=== PATIENT | female | born 1995 | race Caucasian/White ===

== ENCOUNTER 2023-06-27 20:16 | Inpatient (IN) ==
[2023-06-27] MEDS: OXYTOCIN 30 UNITS/NSS 30 UNITS/500 ML BAG IV PRN (20:37)
[2023-06-27] MEDS ORDERED: LACTATED RINGER'S 1,000 ML IV PRN ×2 (20:59→21:19)
[2023-06-27] MEDS ORDERED: LIDOCAINE 1% LOCAL 20 ML VIAL INFIL PRN ×2 (20:59→21:19)
[2023-06-27] MEDS ORDERED: OXYTOCIN 30 UNITS/NSS 30 UNITS/500 ML BAG IV PRN ×2 (21:19→21:20)
[2023-06-27] MEDS ORDERED: DIPHTHER/TETAN/PERTUS Vaccine (Tdap, Adol/Adult) 0.5mL IM ONE (21:20)
[2023-06-27] MEDS ORDERED: HYDROCORTISONE ACETATE 25 MG SUPP PR PRN (21:20)
[2023-06-27] MEDS ORDERED: bisacodyL 10 MG SUPP PR PRN (21:20)
--- NOTE | 2023-06-27 21:21 | Delivery Summary ---
Vaginal Delivery Summary Date of Service June 27, 2023 Vaginal Delivery Summary and 2nd Degree LAC [facility] Vaginal Delivery Charge Delivery Type Details: and 2nd Degree LAC
[2023-06-27] MEDS: LIDOCAINE 1% LOCAL 20 ML VIAL ONE (21:26)
[2023-06-27 21:45] LABS: Hemoglobin 10.4 g/dl (12.0-16.0); Mean Corpuscular Hemoglobin 30.4 pg (25.0-34.0); Mean Corpuscular Hgb Conc 33.5 g/dL (32.0-36.0); Mean Corpuscular Volume 90.6 fL (80.0-100.0); Mean Platelet Volume 11.7 fL (9.4-12.4); Platelet Count 172 K/uL (130-400); RDW Coefficient of Variation 12.5 % (11.5-14.5); Red Blood Count 3.42 M/uL (4.20-5.40); White Blood Count 13.27 K/ul (4.8-10.8)
--- NOTE | 2023-06-27 21:49 | Delivery Summary ---
Supervising Physician Co-Signing Physician Notes Presented in active labor at 10 cm dilated 100% effaced +3 station with a strong urge to push. Patient pushed over 2-3 contractions to achieve delivery. Head of the delivered in MICHAEL position and transition to left transverse. There is noted to be a compound arm which was delivered by remaining shoulder and body. was noted be vigorous upon delivery and a 1 minute delayed cord clamping was initiated. Cord was then double clamped and cut. remained on maternal abdomen. Cord blood obtained. Attention was turned to deliver the placenta was delivered intact three-vessel cord gentle cord traction. On inspection of the perineum vagina and cervix there is noted to be a second-degree perineal laceration and right sulcal laceration. The sulcal laceration repaired with 3-0 Vicryl continuous running locking stitch. These perineal laceration was repaired with 3-0 Vicryl in traditional crown stitch. Needle sponge and instrument counts were correct at the completion of the case. Both mother and stable in the immediate postdelivery period. QBL of 150 mL. No complications noted Vaginal Delivery Summary Date of Service June 27, 2023 Vaginal Delivery Summary and 2nd Degree LAC [facility] [place] Vaginal Delivery Charge Delivery Type Details: and 2nd Degree LAC
[2023-06-27] MEDS: IBUPROFEN 600 MG TAB PO PRN (23:01)
[2023-06-27] MEDS: BENZOCAINE 20% SPRY 85 APPLN/85 GM CAN EXT PRN (23:24)
[2023-06-28] MEDS: ACETAMINOPHEN 325 MG TAB PO PRN (02:21)
[2023-06-28 05:59] LABS: Hematocrit (blood only) 31.9 % (37.0-47.0); Hemoglobin 10.6 g/dl (12.0-16.0)
--- NOTE | 2023-06-28 06:40 | Obstetrical Progress Note ---
Date of Service June 28, 2023 Assessment & Plan (1) Encounter for care and examination after delivery: Day 1 status post vaginal delivery. Doing well. Routine care. Subjective Ambulation: ambulating normally Voiding: no voiding problems Passing Gas:: Yes Diet Tolerance:: regular diet Lochia:: Moderate Feeding Type:: breast feeding Physical Exam Constitutional WD/WN, vitals as above Respiratory normal respiratory effort; no respiratory distress and no labored breathing Gastrointestinal (Abdomen) Inspection/Auscultation: abdomen normal to inspection; abdomen not distended Percussion/Palpation: abdomen soft; abdomen nontender, no guarding and abdomen not rigid Genitourinary OB Exam Abdomen: + fundal height Fundus: + firm and + relation to umbilicus (Below); not tender or not boggy Results & Data Vital Signs (Past 12 Hours) Vital Signs Temp Pulse Pulse Resp BP BP Pulse Ox 06/28/23 03:02 36.7 C 73 18 116/79 98 06/27/23 23:39 36.8 C 81 18 99 06/27/23 23:16 92 H 128/76 06/27/23 23:01 36.8 C 18 06/27/23 23:01 88 129/76 06/27/23 22:46 92 H 131/71 06/27/23 22:31 101 H 121/61 06/27/23 22:16 106 H 138/83 06/27/23 22:01 80 136/84 06/27/23 21:46 96 H 124/86 06/27/23 21:31 104 H 130/75 06/27/23 21:16 85 124/88 06/27/23 20:25 36.9 C 81 20 139/85 O2 Del Method 06/28/23 03:02 Room Air 06/27/23 23:39 Room Air 06/27/23 23:16 06/27/23 23:01 06/27/23 23:01 06/27/23 22:46 06/27/23 22:31 06/27/23 22:16 06/27/23 22:01 06/27/23 21:46 06/27/23 21:31 06/27/23 21:16 06/27/23 20:25
[2023-06-28] MEDS: DOCUSATE SODIUM 100 MG CAP PO SCH (08:18)
[2023-06-28] MEDS: PRENATAL VITAMIN 1 TAB PO SCH (08:19)
[2023-06-28] MEDS: FERROUS SULFATE 325 MG TAB PO SCH (08:19)
[2023-06-28] MEDS: bisacodyL 5 MG TABEC PO SCH (20:34)
--- NOTE | 2023-06-29 08:07 | Obstetrical Progress Note ---
Date of Service June 29, 2023 Assessment & Plan (1) Encounter for care and examination after delivery: Plan Doing well. Desires d/c. Instructions given. Day #:: 1 Subjective Ambulation: ambulating normally Voiding: no voiding problems Passing Gas:: Yes Diet Tolerance:: clear liquids Lochia:: Small Feeding Type:: bottle feeding Feels well and desires d/c. Physical Exam Neck trachea midline, no thyromegaly Respiratory normal respiratory effort, lungs clear to auscultation Cardiovascular RRR, no murmur, no edema Gastrointestinal (Abdomen) soft, nt, nd ff/nt 2 below u Psychiatric A+Ox3, euthymic affect Results & Data Vital Signs (Past 12 Hours) Vital Signs Temp Pulse Resp BP Pulse Ox O2 Del Method 06/28/23 23:05 36.4 C L 81 18 122/82 96 Room Air
== END 2023-06-29 13:30 | disposition home or self-care (01) | DRG 807 ==
LOC: OPB 20:16 → 4S1 20:18 → 4E2 23:58